=== PATIENT | male | born 1955 | race Caucasian/White ===

== ENCOUNTER → 2021-01-24 18:21 | Outpatient (CLI) | payer MEDICARE, SELFPAY ==
[2021-01-24 18:48] LABS: Basophils # 0.1 K/mm3 (0-0.2); Basophils % 1.3 % (0.1-2.0); Eosinophils # 0.2 K/mm3 (0.0-0.4); Eosinophils % 3.5 % (0.1-12.0); Hematocrit 36.4 % (42.0-52.0); Hemoglobin 10.6 g/dL (14.1-18.0); Lymphocytes # 0.8 K/mm3 (0.7-4.5); Lymphocytes % 13.6 % (10-50); Mean Corpuscular HGB Conc 29.2 g/dL (31.8-35.4); Mean Corpuscular Hemoglobin 26.8 pg (27.0-31.2); Mean Corpuscular Volume 91.8 fl (80-94); Mean Platelet Volume 11.4 fl (7.4-10.4); Monocytes # 0.1 K/mm3 (0.1-1.0); Monocytes % 1.6 % (1.7-9.3); Neutrophils # 4.5 K/mm3 (1.8-7.8); Platelet Count 55 K/mm3 (142-424); Red Blood Count 3.96 M/mm3 (4.60-6.20); Red Cell Distribution Width 18.2 % (11.5-17.5); White Blood Count 5.6 K/mm3 (4.8-10.8)
[2021-01-24 18:54] LABS: Alanine Aminotransferase 15 U/L (12-78); Albumin Level 4.2 g/dl (3.5-5.0); Albumin/Globulin Ratio 1.4 (1.1-1.8); Alkaline Phosphatase 81 U/L (38-126); Anion Gap 11.2 mEq/L (5-15); Aspartate Amino Transferase 24 U/L (17-59); Bilirubin,Total 0.5 mg/dl (0.2-1.3); Blood Urea Nitrogen 14 mg/dl (9-20); Calcium 8.7 mg/dl (8.4-10.2); Carbon Dioxide 25 mmol/L (22.0-30.0); Chloride 106 mmol/L (98-107); Chol/HDL Ratio 5.8 (1-3.5); Cholesterol 191 mg/dl (140-200); Estimated Glomerular Filt Rate 84 ml/min (>60); GFR (African American) 102 ML/MIN (>60); Globulin 3.1 g/dL (1.3-3.2); Glucose 106 mg/dl (74-100); HDL Cholesterol 33 mg/dl (40-60); Potassium 4.2 mmoL/L (3.5-5.1); Sodium 138 mmol/L (136-145); Total Protein,Serum 7.3 g/dl (6.3-8.2); Triglycerides 94 mg/dl (30-150); VLDL Cholesterol 19 mg/dL (0-40)
[2021-01-24 19:05] LABS: Direct LDL Cholesterol 134.23 mg/dL (100-129)
[2021-01-24 19:11] LABS: T4 (Thyroxine) 12.5 ug/dl (5.53-11.0)
[2021-01-24 19:24] LABS: Prostate Specific Ag Screen 3.5 ng/ml (0.0-4.0)
== END ==
PROVIDERS: Visit Provider Family Medicine
DX: J44.9 Chronic obstructive pulmonary disease, unspecified (principal); F41.9 Anxiety disorder, unspecified; Z12.5 Encounter for screening for malignant neoplasm of prostate; E78.5 Hyperlipidemia, unspecified
CPT/HCPCS: 80053; 80061; 84436; 84443; 85025; G0103

== ENCOUNTER → 2021-03-06 13:38 | Outpatient (CLI) | payer MEDICARE, SELFPAY ==
[2021-03-06 14:29] LABS: Basophils # 0.1 K/mm3 (0-0.2); Basophils % 3.6 % (0.1-2.0); Eosinophils # 0.2 K/mm3 (0.0-0.4); Eosinophils % 4.4 % (0.1-12.0); Hematocrit 34.8 % (42.0-52.0); Lymphocytes % 50.4 % (10-50); Mean Corpuscular HGB Conc 28.7 g/dL (31.8-35.4); Mean Corpuscular Hemoglobin 25.8 pg (27.0-31.2); Mean Corpuscular Volume 89.8 fl (80-94); Mean Platelet Volume 12.1 fl (7.4-10.4); Monocytes # 0.1 K/mm3 (0.1-1.0); Neutrophils # 1.7 K/mm3 (1.8-7.8); Neutrophils % 42.1 % (37.0-80.0); Platelet Count 66 K/mm3 (142-424); Red Blood Count 3.87 M/mm3 (4.60-6.20); Red Cell Distribution Width 18.5 % (11.5-17.5)
[2021-03-06 14:31] LABS: MANUAL DIFFERENTIAL MANUAL DIFFERENTIAL (MANUAL DIFF)
[2021-03-06 14:41] LABS: Alanine Aminotransferase 14 U/L (12-78); Albumin Level 4.3 g/dl (3.5-5.0); Albumin/Globulin Ratio 1.5 (1.1-1.8); Alkaline Phosphatase 69 U/L (38-126); Anion Gap 15.1 mEq/L (5-15); Aspartate Amino Transferase 21 U/L (17-59); Bilirubin,Total 0.6 mg/dl (0.2-1.3); Blood Urea Nitrogen 9 mg/dl (9-20); Calcium 8.8 mg/dl (8.4-10.2); Carbon Dioxide 23 mmol/L (22.0-30.0); Chloride 106 mmol/L (98-107); Estimated Glomerular Filt Rate 75 ml/min (>60); GFR (African American) 90 ML/MIN (>60); Globulin 2.9 g/dL (1.3-3.2); Glucose 104 mg/dl (74-100); Potassium 4.1 mmoL/L (3.5-5.1); Sodium 140 mmol/L (136-145); Total Protein,Serum 7.2 g/dl (6.3-8.2)
[2021-03-06 14:53] LABS: Iron 84 ug/dL (49-181)
[2021-03-06 15:02] LABS: Total Iron Binding Capacity 481 ug/dL (261-462)
[2021-03-06 15:21] LABS: Eosinophils % 3 % (0-3); Hypochromasia 2+; Lymphocytes % 47 % (10-50); Monocytes % 4 % (2-9); Neutrophils % 46 % (42-76); Platelet Estimate Marked Decrease; Poikilocytosis 1+; Stomatocytes 1+; Total Cells Counted 100
[2021-03-06 15:29] LABS: Ferritin 11.4 ng/ml (17.9-464)
[2021-03-06 15:53] LABS: Folate 7.46 ng/mL
[2021-03-06 19:33] LABS: Vitamin B12 424 pg/mL (239-931)
[2021-03-08 13:41] LABS: Peripheral Smear Review Scanned Result
[2021-03-10 15:34] LABS: Albumin 3.5 g/dL (2.9-4.4); Alpha-1-Globulin 0.3 g/dL (0.0-0.4); Alpha-2-Globulin 0.7 g/dL (0.4-1.0); Protein, Total 6.8 g/dL (6.0-8.5)
[2021-03-10 16:11] LABS: Immunoglobulin A, Qn 277 mg/dL (61-437); Immunoglobulin G, Qn 998 mg/dL (603-1613)
[2021-03-10 17:42] LABS: Immunoglobulin M, Qn 80 mg/dL (20-172)
[2021-03-20 17:08] LABS: Free Kappa Lt Chains 19.8
[2021-03-20 17:09] LABS: Free Lambda Lt Chains 15.3
== END ==
PROVIDERS: Visit Provider Internal Medicine Medical Oncology
DX: D69.6 Thrombocytopenia, unspecified (principal)
CPT/HCPCS: 36415; 80053; 82607; 82728; 82746; 82784; 83540; 83550; 83883; 84155; 84165; 85007; 85025; 86334

== ENCOUNTER → 2021-03-12 08:09 | Outpatient (CLI) | payer MEDICARE, SELFPAY ==
--- NOTE | 2021-03-12 08:24 | NM_ITS ---
PROCEDURE: NM LIVER AND SPLEEN STATIC CLINICAL INDICATION: ANEMIA Smoker, anemia COMPARISON: No exams were available for comparison FINDINGS: Dose: 5.91 mCi technetium sulfur colloid Homogeneous activity is present in the liver and spleen. No evidence organ enlargement. There is a mild degree of generalized bone marrow uptake consistent with mild colloid shift. IMPRESSION: Mild degree of generalized bone marrow uptake suggesting mild hepatocellular dysfunction. Dictated by: Primitivo Gutierrez MD 03/13/2021 06:44 Primitivo Gutierrez MD in [place] 03/13/2021 06:44
--- NOTE | 2021-03-12 08:24 | CT_ITS ---
PROCEDURE: CT LUNG SCREENING CLINICAL INDICATION: H/O NICOTINE DEPENDENCE Current smoker 75 pack year smoking history Copd Hx of Covid-19 in October 2020 COMPARISON: No exams were available for comparison TECHNIQUE: The exam was performed on a GE Stret[employer] Speed [address] scanner using 2.90 mGy CTDI. A low dose helical CT CHEST was performed on a multi-detector scanner. All CT scans at the facility use one or more dose reduction, viz: automated exposure control, ma/kV adjustment per patient size (including targeted exams where dose is matched to indication, i.e. head), or iterative reconstruction technique. The LDCT was performed in a facility that meets the criteria for the screening program. Data regarding this exam was submitted to [employer] which is an approved registry. The order for this exam indicates that it came as a result of a lung cancer screening counseling shard decision-making visit that included all the elements required of such a visit including smoking cessation. The radiologist interpreting this exam meets the CMS criteria for the LDCT lung cancer screening program. The exam is reported using the Lung-RADS classification scale and reported to the [employer] registry. NOTE: This study was performed for the specific purposes of lung cancer screening and is not an alternative to diagnostic chest CT. RADIATION DOSE: CTDI vol(CT dose Index-volume) = 2.90mG DLP (Dose Length Product) = 113.85 mGcm FINDINGS: COPD changes. Biapical scarring. Atelectatic changes versus scarring in the lower lobes. No suspicious nodules. OTHER FINDINGS: Coronary artery calcification. Small hiatal hernia. Mild degenerative change thoracic spine. Mild aortic valve calcification IMPRESSION: Lung-RADS Category 2 Benign Appearance or Behavior Follow-up: Continue annual screening with LDCT in 12 months Dictated by: Primitivo Gutierrez MD 03/13/2021 10:03 Primitivo Gutierrez MD in [facility] 03/13/2021 10:03
== END ==
PROVIDERS: PCP Family Medicine; Visit Provider Internal Medicine Medical Oncology
DX: Z87.891 Personal history of nicotine dependence (principal); Z12.2 Encounter for screening for malignant neoplasm of respiratory organs; D64.9 Anemia, unspecified; D50.9 Iron deficiency anemia, unspecified
CPT/HCPCS: 71271; 78215; A9541